=== PATIENT | female | born 1980 ===

== ENCOUNTER 2018-10-29 11:27 | Day surgery (SDC) | payer OTHER ==
[~2018-10-29] VITALS: Ht 160 cm; Wt 56.9 kg
== END 2018-10-29 13:50 | disposition home or self-care (01) ==
LOC: ORSCSDS 11:27
PROVIDERS: Internal Medicine Gastroenterology
PROC: 06LY4CC Occlusion of Hemorrhoidal Plexus with Extraluminal Device, Percutaneous Endoscopic Approach (ICD-10-PCS; principal; 2018-10-29 12:45)
DX: K62.5 Hemorrhage of anus and rectum (principal); K64.8 Other hemorrhoids; K64.4 Residual hemorrhoidal skin tags
CPT/HCPCS: J2704; J7120

== ENCOUNTER 2021-07-27 09:05 | Day surgery (SDC) | payer OTHER ==
[~2021-07-27] VITALS: Ht 160 cm; Wt 58.9 kg
[~2021-07-27 09:05] MED LIST: ALLEGRA ALLERG180 MG PO; METPHE10 PO
--- NOTE | 2021-07-27 10:53 | NUR ---
07/27/21 1053 Eduard Delatorre NO ABX PER
--- NOTE | 2021-07-27 12:34 | NUR ---
Discharge instructions reviewed with patient. Patient verbalizes understanding. Copy given to patient to take home. Patient States Post-Procedure ride home has been arranged. Discharged via wheelchair to private car for ride home.
== END 2021-07-27 22:55 | disposition home or self-care (01) ==
LOC: ORSCMMR 09:05 → ORD 10:30 → ORSCMMR 22:55
PROVIDERS: Obstetrics & Gynecology
PROC: 0UDB8ZX Extraction of Endometrium, Via Natural or Artificial Opening Endoscopic, Diagnostic (ICD-10-PCS; principal; 2021-07-27 10:30)
DX: N92.1 Excessive and frequent menstruation with irregular cycle (principal); R10.2 Pelvic and perineal pain; R93.89 Abnormal findings on diagnostic imaging of other specified body structures; D56.9 Thalassemia, unspecified; Z79.899 Other long term (current) drug therapy
CPT/HCPCS: 84703; 88305; J1100; J1885; J2370; J2405; J2704; J3010; J7120

== ENCOUNTER → 2023-11-11 | Outpatient (CLI) | payer BC | END | disposition home or self-care (01) | LOC: LAB SHORT 19:51 → LAB 19:51 | DX: O09.513 Supervision of elderly primigravida, third trimester (principal) | CPT/HCPCS: 87081; 87150 ==